=== PATIENT | female | born 1955 | race Caucasian/White ===

== ENCOUNTER 2020-06-30 09:06 | Outpatient (CLI) | payer BC, SELFPAY ==
--- NOTE | ~2020-06-30 | MM_ITS ---
EXAMINATION: MM screening [place] [facility] w chitra HISTORY: Screening mammogram TECHNIQUE: Craniocaudal and mediolateral oblique 3-D tomosynthesis images were obtained and synthetic 2-D images were generated. CAD analysis was submitted and interpreted. COMPARISON: No prior mammogram is available for comparison at this institution. BREAST PARENCHYMAL COMPOSITION: There are scattered areas of fibroglandular density. FINDINGS: RIGHT BREAST: There is no evidence of suspicious mass, calcification, or architectural distortion to suggest malignancy. LEFT BREAST: A mass is present in the middle third of the lower inner breast 7 cm from the nipple. IMPRESSION: 1. Left breast mass. 2. Additional mammographic views and possible breast ultrasound are recommended. BI-RADS Category 0: Incomplete: Needs additional imaging evaluation. Reviewed, dictated and finalized at location A. IMPRESSION: 1. Left breast mass. 2. Additional mammographic views and possible breast ultrasound are recommended . BI-RADS Category 0: Incomplete: Needs additional imaging evaluation.
== END 2020-06-30 09:07 | disposition home or self-care (01) ==
LOC: ANHIMG 09:12
PROVIDERS: PCP Family Medicine Sports Medicine; Visit Provider Family Medicine Sports Medicine
DX: Z12.31 Encounter for screening mammogram for malignant neoplasm of breast (principal); R92.8 Other abnormal and inconclusive findings on diagnostic imaging of breast
CPT/HCPCS: 77063; 77067

== ENCOUNTER 2020-07-23 11:49 | Outpatient (CLI) | payer BC, SELFPAY ==
--- NOTE | ~2020-07-23 | MMUS_ITS ---
EXAMINATION: MM diagnostic mammo unilat LT, US breast LT limited HISTORY: Left breast mass on screening mammogram TECHNIQUE: Additional 3-D tomosynthesis images of the left breast were performed and synthetic 2-D im ages were generated. CAD analysis was submitted and interpreted. High resolution limited left breast ultrasound was performed. COMPARISON: 06/30/2020 FINDINGS: MAMMOGRAPHIC FINDINGS: There is a 1.9 x 1.1 cm oval, high density mass with spiculated and indistinct margins in the anterio r/middle third of the lower inner breast at the 8:00 location 6 cm from the nipple. ULTRASOUND: There is a 1.7 x 1.0 cm irregular, hypoechoic, parallel mass with spiculated and angular margins, pos terior acoustic shadowing, and internal vascularity at the 8:00 location 5 cm from the nipple corresp onding to the mammographic finding in question. IMPRESSION: 1. Suspicious left breast mass. 2. Ultrasound-guided biopsy is recommended. BI-RADS category 5, highly suggestive of malignancy. Reviewed, dictated and finalized at location A. IMPRESSION: 1. Suspicious left breast mass. 2. Ultrasound-guided biopsy is recommended. BI-RADS category 5, highly suggestive of malignancy.
== END 2020-07-23 11:50 | disposition home or self-care (01) ==
PROVIDERS: PCP Family Medicine Sports Medicine; Visit Provider Family Medicine Sports Medicine
DX: N63.20 Unspecified lump in the left breast, unspecified quadrant (principal); R92.8 Other abnormal and inconclusive findings on diagnostic imaging of breast
CPT/HCPCS: 76642; 77065

== ENCOUNTER → 2024-05-21 11:32 | Outpatient (REF) | payer OTHER, SELFPAY | LOC: ANHLAB 11:32 | PROVIDERS: PCP Family Medicine Sports Medicine; Visit Provider Plastic Surgery | DX: C44.92 Squamous cell carcinoma of skin, unspecified (principal) | CPT/HCPCS: 88305 ==